=== PATIENT | male | born 1980 | race Caucasian/White ===

== ENCOUNTER 2018-05-09 16:40 | Emergency (ER) | payer BC, OTHER ==
[~2018-05-09] VITALS: Ht 177.8 cm; Wt 111.0 kg
[~2018-05-09 16:40] MED LIST: TRAM-10 PO
[2018-05-09 16:54] VITALS: TEMP 36.8; Ht 177.8 cm; Wt 111.0 kg
[2018-05-09] MEDS ORDERED: KETOROLAC TROMETHAMINE 30 MG/ML VIAL IV STA (18:47)
[2018-05-09] MEDS ORDERED: SODIUM CHLORIDE 0.9% 1000ML 1,000 ML IV STA (18:47)
--- NOTE | 2018-05-09 18:53 | EMERGENCY ROOM VISIT NOTE ---
History Report prepared by Russel: Darrick Pavon Under the Supervision of: Dr. Shun Sanchez M.D. First contact with patient: 18:34 Chief Complaint: ABDOMINAL PAIN Stated Complaint: ABD PAIN History of Present Illness The patient is a 38 year old male who presents to the Emergency Room with complaints of constant abdominal pain beginning four days ago. The patient states his symptoms started in his right testicle. He reports his pain worked its way up to his central, upper abdomen. The patient notes it hurts to breath, and walking makes his symptoms worse. He states he is also having dark black stools. The patient denies pain with urination, blood with urination, blood in stool, trouble urinating or moving bowels, straining himself, penile discharge, a history of abdominal surgeries, using iron supplements, and taking Pepto Bismol. Source of History: patient Onset: four days ago Position: abdomen Timing: constant Modifying Factors (Worsening): breathing, movement (walking) Associated Symptoms: No urinary symptoms Note: Associated symptoms: right testicular pain, black stool Denies: straining himself, penile discharge Review of Systems See HPI for pertinent positives and negatives. A total of ten systems were reviewed and were otherwise negative. Past Medical & Surgical Pt denies a pertinent past medical history. Family History Patient reports no known family medical history. Social History Smoking Status: Never Smoker Marital Status: Housing Status: lives with significant other Current/Historical Medications Scheduled Naproxen (Aleve), 440 MG PO PRN Scheduled PRN Ibuprofen Tab (Motrin), 800 MG PO Q8H PRN for Pain Allergies Coded Allergies: No Known Allergies (Unverified , 06/17/14) Physical Exam Vital Signs Date Time Temp Pulse Resp B/P (MAP) Pulse Ox O2 Delivery O2 Flow Rate FiO2 05/09/18 20:11 63 16 147/89 95 Room Air 05/09/18 18:37 65 16 169/101 96 Room Air 05/09/18 16:54 36.8 77 17 183/110 96 Room Air Physical Exam Physical Exam GENERAL: He is oriented to person, place, and time. He appears well-developed and well-nourished. He does not appear distressed. HENT: Exam performed. Head: Normocephalic and atraumatic. Right Ear: External ear normal. No mastoid tenderness. Left Ear: External ear normal. No mastoid tenderness. Mouth/Throat: The oropharynx is clear and moist. No trismus in the jaw. No dental abscesses or uvula swelling. No oropharyngeal exudate or tonsillar abscesses. EYES: Conjunctivae and EOM are normal. Pupils are equal, round, and reactive to light. Right eye exhibits no discharge. Left eye exhibits no discharge. No scleral icterus. NECK: Normal range of motion. Neck supple. No JVD present. No spinous process tenderness present. No carotid bruit present. No rigidity. No tracheal deviation and normal range of motion present. No Brudzinski's sign and no Kernig 's sign noted. CV: Normal rate, regular rhythm, normal heart sounds and intact distal pulses. There is no peripheral edema. Palpable radial pulses bue. PULM/CHEST: Effort normal and breath sounds normal. No respiratory distress. No stridor. He has no wheezes. He has no rales. Chest Wall: He exhibits no tenderness. ABD: The abdomen is soft. Bowel sounds are normal. He has no distension. No mass is present. There is no tenderness. There is no rebound, no guarding, no Wallace's sign and no tenderness at McBurney's point. Rovsig negative. MUSC/SKEL: Normal range of motion. There is no peripheral edema, tenderness or deformity. LYMPH: No cervical adenopathy. : No penile discharge. Cremasteric reflex present bilaterally. No tenderness of either testicle. RECTAL: Hemoccult negative. NEURO: He is alert and oriented to person, place, and time. He has normal strength. No cranial nerve deficit or sensory deficit. Coordination and gait normal. GCS eye subscore is 4. GCS verbal subscore is 5. GCS motor subscore is 6. Cerebellar tests wnl. SKIN: Skin is warm and dry. He is not diaphoretic. PSYCH: He has a normal mood and affect. Behavior is normal. Judgment and thought content normal. Medical Decision & Procedures ER Provider Diagnostic Interpretation: Radiology results as stated below per my review and radiologist interpretation: SCROTAL ULTRASOUND CLINICAL HISTORY: Right testicular pain. COMPARISON STUDY: None. TECHNIQUE: Grayscale and color and duplex Doppler sonography of the scrotum was performed. FINDINGS: The right testis measures 5.4 x 2.3 x 3.4 cm and left measures 4.8 x 2.2 x 3.7 cm. Color flow within each testis is symmetric. There is no testicular mass. There is no evidence for epididymitis. An 8 mm right epididymal cyst is noted. IMPRESSION: 1. Normal sonographic appearance of the testes. No evidence of testicular torsion. No testicular mass. 2. No evidence for epididymitis. 3. 8 mm right epididymal cyst/spermatocele. Electronically signed by: Chintan Adrian M.D. 05/09/2018 8:15 PM Dictated Date/Time: 05/09/2018 8:[address] OF THE ABDOMEN AND PELVIS WITHOUT CONTRAST, STONE PROTOCOL CLINICAL HISTORY: Right flank pain radiating to scrotum. COMPARISON STUDY: None. TECHNIQUE: Helical axial images of the abdomen and pelvis were obtained without IV or oral contrast according to renal stone protocol. A dose lowering technique was utilized adhering to the principles of ALARA. FINDINGS: Heart is mildly enlarged. Mild to moderate coronary artery calcification is noted. There is fatty infiltration of the liver. Minimal infiltration is noted anterior to the medial segment of the left hepatic lobe. Spleen is mildly enlarged. Unenhanced images of the adrenal glands and pancreas are normal. No renal, ureteral or bladder calculi are present. There is trace symmetric bilateral perinephric infiltration. The appendix is normal. There is no evidence for a bowel obstruction. Small fat-containing umbilical hernia is noted. No suspicious osseous lesion is present. There is no lymphadenopathy. No peripancreatic or pericholecystic infiltration is noted. IMPRESSION: 1. No urinary calculi or hydronephrosis. 2. No bowel obstruction. No evidence for acute appendicitis. 3. Equivocal minimal infiltration anterior to the medial segment of the left hepatic lobe which is of doubtful significance. A small omental infarct could have this appearance. 4. Fatty liver. 5. Mild splenomegaly. 6. Mild cardiomegaly. Mild to moderate coronary artery calcification. Electronically signed by: Chintan Adrian M.D. 05/09/2018 8:13 PM Dictated Date/Time: 05/09/2018 8:04 PM Laboratory Results 05/09/18 19:00 Red Blood Count 5.04, Mean Corpuscular Volume 84.7, Mean Corpuscular Hemoglobin 31.9, Mean Corpuscular Hemoglobin Concent 37.7, Mean Platelet Volume 10.7, Neutrophils (%) (Auto) 64.2, Lymphocytes (%) (Auto) 25.9, Monocytes (%) (Auto) 7.7, Eosinophils (%) (Auto) 1.6, Basophils (%) (Auto) 0.3, Neutrophils # (Auto) 5.72, Lymphocytes # (Auto) 2.31, Monocytes # (Auto) 0.69, Eosinophils # (Auto) 0.14, Basophils # (Auto) 0.03 05/09/18 19:00 Test 05/09/18 18:55 05/09/18 19:00 Urine Color YELLOW Urine Appearance CLEAR (CLEAR) Urine pH 5.0 (4.5-7.5) Urine Specific [place] 1.014 (1.000-1.030) Urine Protein NEG (NEG) Urine Glucose (UA) NEG (NEG) Urine Ketones NEG (NEG) Urine Occult Blood NEG (NEG) Urine Nitrite NEG (NEG) Urine Bilirubin NEG (NEG) Urine Urobilinogen NEG (NEG) Urine Leukocyte Esterase NEG (NEG) White Blood Count 8.92 K/uL (4.8-10.8) Red Blood Count 5.04 M/uL (4.7-6.1) Hemoglobin 16.1 g/dL (14.0-18.0) Hematocrit 42.7 % (42-52) Mean Corpuscular Volume 84.7 fL (80-100) Mean Corpuscular Hemoglobin 31.9 pg (25-34) Mean Corpuscular Hemoglobin Concent 37.7 g/dl (32-36) Platelet Count 160 K/uL (130-400) Mean Platelet Volume 10.7 fL (7.4-10.4) Neutrophils (%) (Auto) 64.2 % Lymphocytes (%) (Auto) 25.9 % Monocytes (%) (Auto) 7.7 % Eosinophils (%) (Auto) 1.6 % Basophils (%) (Auto) 0.3 % Neutrophils # (Auto) 5.72 K/uL (1.4-6.5) Lymphocytes # (Auto) 2.31 K/uL (1.2-3.4) Monocytes # (Auto) 0.69 K/uL (0.11-0.59) Eosinophils # (Auto) 0.14 K/uL (0-0.5) Basophils # (Auto) 0.03 K/uL (0-0.2) RDW Standard Deviation 39.0 fL (36.4-46.3) RDW Coefficient of Variation 12.8 % (11.5-14.5) Immature Granulocyte % (Auto) 0.3 % Immature Granulocyte # (Auto) 0.03 K/uL (0.00-0.02) Anion Gap 7.0 mmol/L (3-11) Est Creatinine Clear Calc Drug Dose 120.1 ml/min Estimated GFR () 106.1 Estimated GFR (Non- 91.5 BUN/Creatinine Ratio 13.4 (10-20) Lactic Acid Level 1.1 mmol/L (0.4-2.0) Calcium Level 8.5 mg/dl (8.5-10.1) Total Bilirubin 0.4 mg/dl (0.2-1) Direct Bilirubin mg/dl (0-0.2) Aspartate Amino Transf (AST/SGOT) 21 U/L (15-37) Alanine Aminotransferase (ALT/SGPT) 44 U/L (12-78) Alkaline Phosphatase 71 U/L (45-117) Total Protein 7.4 gm/dl (6.4-8.2) Albumin 4.0 gm/dl (3.4-5.0) Lipase 137 U/L (73-393) Laboratory results reviewed by me Medications Administered Medications (Trade) Dose Ordered Sig/Luis Alfredo Route Start Time Stop Time Status Last Admin Dose Admin Sodium Chloride 1,000 ml @ 999 mls/hr Q1H1M STAT IV 05/09/18 18:47 05/09/18 19:47 DC 05/09/18 19:04 999 MLS/HR Ketorolac Tromethamine (Toradol Inj) 15 mg NOW STAT IV 05/09/18 18:47 05/09/18 18:49 DC 05/09/18 19:04 15 MG ED Course 1837: The patient was evaluated in room B12B. A complete history and physical exam was performed. 1846: Ordered Toradol 15mg IV, Sodium Chloride 1000 ml @ 999 mls/hr IV 2031: Vital signs stable. Repeat abdominal examination showed no tenderness. CT and lab work within normal limits. Ultrasound of the scrotum shows good blood flow to bilateral testicles, small spermatocele/cyst. He will be discharged with PCP and urology follow-up. DISCHARGE - Plan of care discussed with patient and questions answered. The patient was given both verbal and printed discharge instructions. The patient verbalized understanding and ability to comply. The patient is to seek outpatient follow up as noted in the discharge instructions. The patient verbalized understanding and ability to comply. The patient is discharged in stable condition. The patient was instructed to return for worsening symptoms. Medical Decision Vital signs stable. Repeat abdominal examination showed no tenderness. CT and lab work within normal limits. Ultrasound of the scrotum shows good blood flow to bilateral testicles, small spermatocele/cyst. He will be discharged with PCP and urology follow-up. DISCHARGE - Plan of care discussed with patient and questions answered. The patient was given both verbal and printed discharge instructions. The patient verbalized understanding and ability to comply. The patient is to seek outpatient follow up as noted in the discharge instructions. The patient verbalized understanding and ability to comply. The patient is discharged in stable condition. The patient was instructed to return for worsening symptoms. Medication Reconcilliation Current Medication List: was personally reviewed by me Blood Pressure Screening Patient's blood pressure: Elevated blood pressure Blood pressure disposition: Elevated BP felt to be situational Impression Primary Impression: Spermatocele Scribe Attestation The scribe's documentation has been prepared under my direction and personally reviewed by me in its entirety. I confirm that the note above accurately reflects all work, treatment, procedures, and medical decision making performed by me. The chart was completed utilizing [employer] Speech voice recognition software. Grammatical errors, random word insertions, pronoun errors, and incomplete sentences are an occasional consequence of this system due to software limitations, ambient noise, and hardware issues. Any formal questions or concerns about the content, text, or information contained within the body of this dictation should be directly addressed to the physician for clarification. Departure Information Dispostion Home / Self-Care Prescriptions Ibuprofen Tab (MOTRIN) 800 Mg Tab 800 MG PO Q8H Y for Pain, #30 TAB Prov: Shun Sanchez M.D. 05/09/18 Referrals Harmony Hauser M.D. (PCP) Forms Call Back Authorization, HOME CARE DOCUMENTATION FORM, IMPORTANT VISIT INFORMATION Patient Instructions Abdominal Pain - [facility], ED Testicular Pain [facility]
[2018-05-09 19:14] LABS: BASO % 0.3 %; BASO ABS # 0.03 K/uL (0-0.2); EOS % 1.6 %; EOS ABS # 0.14 K/uL (0-0.5); HEMATOCRIT 42.7 % (42-52); HEMOGLOBIN 16.1 g/dL (14.0-18.0); IG# 0.03 K/uL (0.00-0.02); LYMPH % 25.9 %; LYMPH ABS # 2.31 K/uL (1.2-3.4); MEAN CELL VOLUME 84.7 fL (80-100); MEAN CORPUSCULAR HEMOGLOBIN 31.9 pg (25-34); MEAN CORPUSCULAR HGB CONC 37.7 g/dl (32-36); MEAN PLATELET VOLUME 10.7 fL (7.4-10.4); MONO % 7.7 %; MONO ABS # 0.69 K/uL (0.11-0.59); NEUT % 64.2 %; NEUT ABS # 5.72 K/uL (1.4-6.5); PLATELET COUNT 160 K/uL (130-400); RED CELL DISTRIBUTION WIDTH CV 12.8 % (11.5-14.5); WHITE BLOOD COUNT 8.92 K/uL (4.8-10.8)
[2018-05-09 19:36] LABS: CALCIUM 8.5 mg/dl (8.5-10.1); POTASSIUM 3.7 mmol/L (3.5-5.1); TOTAL PROTEIN 7.4 gm/dl (6.4-8.2)
[2018-05-09 20:11] VITALS: BP 147/89; PULSE 63; O2SAT 95
--- NOTE | 2018-05-09 20:15 | DIAGNOSTIC IMAGING REPORT ---
CT OF THE ABDOMEN AND PELVIS WITHOUT CONTRAST, STONE PROTOCOL CLINICAL HISTORY: Right flank pain radiating to scrotum. COMPARISON STUDY: None. TECHNIQUE: Helical axial images of the abdomen and pelvis were obtained without IV or oral contrast according to renal stone protocol. A dose lowering technique was utilized adhering to the principles of ALARA. FINDINGS: Heart is mildly enlarged. Mild to moderate coronary artery calcification is noted. There is fatty infiltration of the liver. Minimal infiltration is noted anterior to the medial segment of the left hepatic lobe. Spleen is mildly enlarged. Unenhanced images of the adrenal glands and pancreas are normal. No renal, ureteral or bladder calculi are present. There is trace symmetric bilateral perinephric infiltration. The appendix is normal. There is no evidence for a bowel obstruction. Small fat-containing umbilical hernia is noted. No suspicious osseous lesion is present. There is no lymphadenopathy. No peripancreatic or pericholecystic infiltration is noted. IMPRESSION: 1. No urinary calculi or hydronephrosis. 2. No bowel obstruction. No evidence for acute appendicitis. 3. Equivocal minimal infiltration anterior to the medial segment of the left hepatic lobe which is of doubtful significance. A small omental infarct could have this appearance. 4. Fatty liver. 5. Mild splenomegaly. 6. Mild cardiomegaly. Mild to moderate coronary artery calcification. Electronically signed by: Chintan Adrian M.D. 05/09/2018 8:13 PM Dictated Date/Time: 05/09/2018 8:04 PM
--- NOTE | 2018-05-09 20:16 | DIAGNOSTIC IMAGING REPORT ---
SCROTAL ULTRASOUND CLINICAL HISTORY: Right testicular pain. COMPARISON STUDY: None. TECHNIQUE: Grayscale and color and duplex Doppler sonography of the scrotum was performed. FINDINGS: The right testis measures 5.4 x 2.3 x 3.4 cm and left measures 4.8 x 2.2 x 3.7 cm. Color flow within each testis is symmetric. There is no testicular mass. There is no evidence for epididymitis. An 8 mm right epididymal cyst is noted. IMPRESSION: 1. Normal sonographic appearance of the testes. No evidence of testicular torsion. No testicular mass. 2. No evidence for epididymitis. 3. 8 mm right epididymal cyst/spermatocele. Electronically signed by: Chintan Adrian M.D. 05/09/2018 8:15 PM Dictated Date/Time: 05/09/2018 8:13 PM
[2018-05-09 20:18] LABS: CREATININE 1.02 mg/dl (0.60-1.40)
[2018-05-09] MEDS ORDERED: IBUP-1451 PO (20:34)
[2018-05-09] MEDS ORDERED: NAPR1TAB9 PO (20:37)
== END 2018-05-09 20:39 | disposition home or self-care (01) ==
LOC: C.EDB 16:41
DX: N43.41 Spermatocele of epididymis, single (principal)